=== PATIENT | male | born 1960 | race Caucasian/White ===

== ENCOUNTER → 2017-02-16 | Day surgery (SDC) | payer OTHER ==
[~2017-02-16] MED LIST: BUPIVACAINE 0.5% 30 ML SDV ONE; BUPIVACAINE/EPI 0.5% 30 ML SDV ONE; DEXAMETHASONE 4 MG/ML VIAL ONE; HYDROCODONE/APAP 5/325 TAB PO PRN; LR 1,000 ML IV ONE; MIDAZOLAM 2 MG/2 ML VIAL IVP ONE; MIDAZOLAM 2 MG/2 ML VIAL ONE; NALOXONE HCL 0.4 MG/ML INJ IVP PRN; ONDANSETRON 4 MG/2 ML VIAL IVP PRN; ONDANSETRON 4 MG/2 ML VIAL ONE; PROMETHAZINE HCL 25 MG/ML INJ IVP PRN; PROPOFOL/EMULSION 500 MG/50 ML BOTTLE IV ONE; ceFAZolin 1 GM VIAL ONE; fentaNYL 100 MCG/2 ML INJ IVP PRN; fentaNYL 100 MCG/2 ML INJ ONE
[2017-02-16 06:51] VITALS: RESP 16
--- NOTE | 2017-02-16 07:01 | EDPHY ---
H & P Stated Complaint: pre-op for partial bursectomy - Personal History Current Tetanus/Diphtheria Vaccine: Unsure Current Tetanus Diphtheria and Acellular Pertussis (TDAP): Unsure - Medical/Surgical History Hx Asthma: No Hx Chronic Respiratory Disease: No Hx Diabetes: No Hx Cardiac Disease: No Hx Renal Disease: No Hx Cirrhosis: No Hx Alcoholism: No Hx HIV/AIDS: No Hx Splenectomy or Spleen Trauma: No Other PMH: multiple orthopedic surgeries - Social History Smoking Status: Never smoked Constitutional: Initial Vital Signs Temperature (C) 37 C 02/16/17 06:48 Heart Rate 67 02/16/17 06:48 Respiratory Rate 16 02/16/17 06:48 Blood Pressure 122/72 H 02/16/17 06:48 O2 Sat (%) 96 02/16/17 06:48 O2 Delivery Mode Room Air Allergies/Adverse Reactions: diclofenac [From Voltaren] Allergy (Verified 02/15/17 14:13) misoprostol Allergy (Verified 02/15/17 14:13) ropivacaine Allergy (Verified 02/15/17 14:13) weed pollen Allergy (Verified 02/15/17 14:13) Home Medications: Medication Instructions Recorded Augmentin 02/16/17 Bactrim DS 02/16/17 Claritin 02/16/17 Flonase Allergy Relief 02/16/17 GABAPENTIN 02/16/17 Tylenol 02/16/17 Medical Decision Making ED Course/Re-evaluation: CHIEF COMPLAINT: HISTORY OF PRESENT ILLNESS: must have 4 elements: Location, Quality, Severity , Duration, Timing, Context, Modifying Factors, Associated Signs and Symptoms REVIEW OF SYSTEMS: A 10 point review of systems was performed and is negative with the exception of the elements mentioned in the history of present illness. PHYSICAL EXAM: HR, BP, O2 Sat, RR. Temp noted General Appearance: Alert, well hydrated, appropriate, and non-toxic appearing. Head: Atraumatic without scalp tenderness or obvious injury Eyes: Pupils equal, round, reactive to light and accommodation, EOMI, no trauma , no injection. Ears: Clear bilaterally, no perforation, normal landmarks Nose: Atraumatic, no rhinorrhea, clear. Throat: There is no erythema or exudates, no lesions, normal tonsils, mucus membranes moist. Neck: Supple, 2+ carotid upstroke, nontender, no lymphadenopathy. Respiratory: No retractions, no distress, no wheezes, and no accessory muscle use. Lungs are clear to auscultation bilaterally. Cardiovascular: Regular rate and rhythm, no murmurs, rubs, or gallops. Bilateral carotid, radial, dorsalis pedis, and posterior tibial pulses intact. Good capillary refill all extremities. Gastrointestinal: Abdomen is soft, nontender, non-distended, no masses, no rebound, no guarding, no peritoneal signs. Musculoskeletal: Normal active ROM of all extremities, atraumatic. Neurological: Alert, appropriate, and interactive. The patient has normal DTRs and non-focal cranial nerves, motor, sensory, and cerebellar exam. Skin: No rashes, good turgor, no nodules on palpation. Past medical history: Past surgical history: Family history: Social history: DIAGNOSTICS/PROCEDURES/CRITICAL CARE TIME: DIFFERENTIAL DIAGNOSIS: MEDICAL DECISION MAKING: Departure - Departure Referrals: NONE *PRIMARY CARE P,. [Primary Care Provider] - As per Instructions
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
--- NOTE | 2017-02-16 07:54 | PDANEPAE ---
ANE History of Present Illness 56yo for I&D elbow ANE Past Medical History - Cardiovascular History Hx Hypertension: No Hx Arrhythmias: No Hx Chest Pain: No Hx CHF / Valvular Disease: No Hx Palpitations: No - Pulmonary History Hx COPD: No Hx Asthma/Reactive Airway Disease: No Hx Recent Upper Respiratory Infection: No Hx Oxygen in Use at Home: No - Endocrine History Hx Diabetes: No Hypothyroid: No ANE Review of Systems - Exercise capacity METS (RN): 4 METS ANE Patient History - Allergies Allergies/Adverse Reactions: diclofenac [From Voltaren] Allergy (Verified 02/15/17 14:13) misoprostol Allergy (Verified 02/15/17 14:13) ropivacaine Allergy (Verified 02/15/17 14:13) weed pollen Allergy (Verified 02/15/17 14:13) - Home Medications Home Medications: Augmentin 02/16/17 [Last Taken Unknown] Bactrim DS 02/16/17 [Last Taken Unknown] Claritin 02/16/17 [Last Taken Unknown] Flonase Allergy Relief 02/16/17 [Last Taken Unknown] GABAPENTIN 02/16/17 [Last Taken Unknown] Tylenol 02/16/17 [Last Taken Unknown] - NPO status NPO Since - Liquids (Date): 02/15/17 NPO Since - Liquids (Time): 20:00 NPO Since - Solids (Date): 02/15/17 NPO Since - Solids (Time): 20:00 - Anes Hx Anes Hx: no prior problems - Smoking Hx Smoking Status: Never smoked ANE Labs/Vital Signs - Vital Signs Blood Pressure: 122/72 Heart Rate: 67 Respiratory Rate: 16 O2 Sat (%): 96 Height: 5 ft 11 in Weight: 90.718 kg ANE Physical Exam - Airway Mallampati Score: Class 1 Mouth exam: normal dental/mouth exam - Pulmonary Pulmonary: no respiratory distress - Cardiovascular Cardiovascular: regular rate and rhythym - ASA Status ASA Status: I ANE Anesthesia Plan Anesthesia Plan: GA w LMA
--- NOTE | 2017-02-16 08:53 | POSTOPPROG ---
Post Op Note Date of Operation: 02/16/17 Surgeon: Ajay Darnell Real Estate Broker: none Anesthesiologist: Godwin Anesthesia: GET(General Endotracheal) Pre-op Diagnosis: right septic olecranon bursitis Post-op Diagnosis: same Indication: open wound Procedure: I and D with bursectomy, secndary closure Inf/Abcess present in the surg proc area at time of surgery?: Yes Depth: Deep Incisional (Fascial) EBL: 50-100
--- NOTE | 2017-02-16 09:12 | POSTANESTH ---
Post Anesthetic Evaluation Cardiovascular Status: Normal, Stable Respiratory Status: Tx Decrease in SpO2 Level of Consciousness/Mental Status: Alert and Oriented Pain Control: Adequate, Prn Tx Ordered Nausea/Vomiting Control: Adequate, Prn Tx Ordered Complications Possibly Related to Anesthesia: None Noted
[2017-02-16 09:17] VITALS: PULSE 60
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
[2017-02-16 09:37] VITALS: BP 120/64; O2SAT 92
[2017-02-16 09:56] VITALS: TEMP 38.1
== END | disposition home or self-care (01) ==
LOC: FSGY 06:40 → EDSTATUS 08:00
PROVIDERS: ATTEND Orthopaedic Surgery
PROC: 0MB30ZZ Excision of Right Elbow Bursa and Ligament, Open Approach (ICD-10-PCS; principal; 2017-02-16 08:00)
DX: M70.21 Olecranon bursitis, right elbow (principal)
CPT/HCPCS: J0690; J1100; J2250; J2405; J2704; J3010

== ENCOUNTER 2017-03-23 10:28 | Emergency (ER) | payer OTHER ==
[2017-03-23 10:36] VITALS: BP 129/97; PULSE 80; RESP 18; TEMP 98.6; O2SAT 96
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
== END 2017-03-23 11:45 | disposition home or self-care (01) ==
PROC: 0M933ZZ Drainage of Right Elbow Bursa and Ligament, Percutaneous Approach (ICD-10-PCS; principal; 2017-03-23)
DX: M70.21 Olecranon bursitis, right elbow (principal)